=== PATIENT | female | born 2000 | race Caucasian/White ===

== ENCOUNTER 2020-03-31 13:03 | Inpatient (IN) | payer BC, OTHER, SELFPAY ==
[~2020-03-31 13:03] MED LIST: Dexamethasone 20 MG/5 ML VIAL ONE; Ketorolac Tromethamine 30 MG/ML VIAL ONE; Lidocaine 1% PF 5 ML VIAL ONE; Ondansetron PF 4 MG/2 ML Vial ONE; PROPOFOL 200 MG/20 ML VIAL ONE
[2020-03-31 13:40] LABS: #Basophils 0.1 thou/uL (0.0-0.2); #Lymphocytes 2.5 thou/uL (1.20-3.40); #Monocytes 0.6 thou/uL (0.11-0.59); #Neutrophils 2.5 thou/uL (1.40-6.50); %Basophils 1.2 % (0.0-1.0); %Eosinophils 0.8 % (0.0-10.0); %Lymphocytes 43.6 % (28.0-48.0); %Monocytes 9.9 % (0.0-4.0); %Neutrophils 44.5 % (31.0-61.0); Hemoglobin 12.2 g/dL (12.0-16.0); Mean Corpuscular HGB CONC 32.5 g/dL (32.0-36.0); Mean Corpuscular Hemoglobin 26.7 pg (25.0-35.0); Mean Corpuscular Volume 82.2 fL (78.0-98.0); Mean Platelet Volume 9.9 fL (7.4-10.4); Platelet Count 250 thou/uL (130-400); RBC Distribution Width 13.8 % (11.5-14.5); Red Blood Cell (RBC) Count 4.57 mill/uL (4.00-5.20); White Blood Cell (WBC) Count 5.6 thou/uL (4.8-10.8)
[2020-03-31] MEDS ORDERED: Ondansetron PF 4 MG/2 ML Vial ONE ×2 (13:47→14:48)
[2020-03-31] MEDS ORDERED: Ketorolac Tromethamine 30 MG/ML VIAL ONE (13:47)
[2020-03-31 13:52] LABS: BHCG - Serum Negative (NEGATIVE); Pregs Control Background? CLEAR/WHITE (CLR/WHITE); Pregs Control Bar Appear? YES (CONTROL BAR)
[2020-03-31 14:00] LABS: ALT (SGPT) 25 U/L (8-55); AST (SGOT) 22 U/L (5-34); Albumin 5.2 g/dL (3.5-5.0); Alkaline Phosphatase 98 U/L (40-100); Anion Gap 15 mmol/L (10-20); BUN (Urea Nitrogen) 14 mg/dL (7.0-18.7); Bilirubin, Total 0.4 mg/dL (0.2-1.2); Calc. Creatinine Clearance 0 mL/min (70-130); Calcium 9.9 mg/dL (7.8-10.44); Carbon Dioxide 21 mmol/L (22-29); Chloride 106 mmol/L (98-107); Estimated GFR-MDRD 88; Globulin 2.8 g/dL (2.4-3.5); Glucose 143 mg/dL (70-105); Potassium 3.3 mmol/L (3.5-5.1); Sodium 139 mmol/L (136-145)
[2020-03-31 14:13] LABS: Bacteria/HPF None Seen HPF (None Seen); Bilirubin Negative (Negative); Blood, Urine 2+ (Negative); Clarity Turbid (Clear); Glucose, Urine (Dipstick) Normal (Negative); Leukocyte 500 Leu/uL (Negative); Nitrite 1+ (Negative); Protein, Urine (Dipstick) 100 mg/dL (Neg-Trace); RBC/HPF Greater than 50 HPF (0-3); Urobilinogen Normal mg/dL (Less than 2); WBC/HPF Greater than 50 HPF (0-3)
--- NOTE | 2020-03-31 14:37 | CT ---
CT Stone Protocol: 03/31/2020 2:08 PM HISTORY: Left flank pain COMPARISON: None. TECHNIQUE: Multiple contiguous axial images were obtained and a CT of the abdomen and pelvis without IV contrast . Coronal and sagittal reformats were performed. FINDINGS: This examination is limited for the evaluation of solid organs and vascular structures due to the lac k of intravenous contrast. Lower Chest: within normal limits. Abdomen: Liver: within normal limits. Bile Ducts: Normal caliber. Gallbladder: No calcified gallstones. Normal caliber wall. Pancreas: within normal limits. Spleen: within normal limits. Adrenals: within normal limits. Kidneys: Mild left hydronephrosis. Hyperdensity of the right renal pyramids is seen. Pelvis: Reproductive Organs: No pelvic masses. Ureters: 6 mm calcific addition the proximal left ureter with mild proximal left hydroureter. Bladder: within normal limits. Bowel: Normal caliber. Normal appendix. Mesenteric Lymph Nodes: No enlarged mesenteric lymph nodes. Peritoneum: No ascites or free air, no fluid collection. Vessels: Normal caliber aorta Retroperitoneum: within normal limits. Abdominal Wall: within normal limits. Bones: Unremarkable. IMPRESSION: 1. Proximal left ureteral calcification with mild left hydronephrosis 2. 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
[2020-03-31] MEDS ORDERED: Morphine 4 MG/ML VIAL ONE (14:49)
[2020-03-31] MEDS ORDERED: Promethazine HCl 25 MG/ML VIAL ONE (15:40)
[2020-03-31 16:54] LABS: Lactic Acid 1.4 mmol/L (0.5-2.2)
[2020-03-31] MEDS ORDERED: Metoclopramide HCl 10 MG/2 ML VIAL ONE (17:15)
[2020-03-31] MEDS ORDERED: diphenhydrAMINE 50 MG/ML VIAL ONE (17:15)
--- NOTE | 2020-03-31 18:33 | PDOC.FPRHP ---
- History of Present Illness Chief Complaint: L flank pain History of Present Illness: 19yo CF who was at usual state of health until this morning at 1100 when she awoke with acute-onset, sharp stabbing L flank pain. No relieving sxs, constant until given meds in ED. Associated chills and subjective fever. Nausea and vomiting. No radiation of the pain. No dysuria, frequency, hesitation, or hematuria. Unable to tolerate PO today. Denies any cough, congestion, CP, abd pain, diarrhea/constipation. Pain resolved with meds given in ED. ED Course: Given reglan, benadryl, phenergan, NS 2L, Zofran 4mg x2, morphine 4mg, toradol 30mg, levaquin 750mg. Pain and nausea resolved with meds. Urology, Dr. Montes, consulted by ED. Plan to cont supportive care and abx, with NPO for possible urologic intervention tonight vs AM. - Allergies/Adverse Reactions Allergies Allergy/AdvReac Type Severity Reaction Status Date / Time Cephalosporins Allergy Hives Verified 03/31/20 19:26 - Home Medications Medication Instructions Recorded Confirmed Type No Known 03/31/20 03/31/20 History - History PMHx: None PSHx: C/s December 09. . FHx: Great-great grandmother with breast cancer. Mom with lupus Social: No tob, social drinker, no illicits. Does not work. Lives with baby- daddy, his cousin, and baby. - Review of Systems General: reports: fever/chills, weight/appetite/sleep changes (decreased). denies: fatigue Eyes: denies: vision changes ENT: denies: nasal congestion, rhinorrhea Respiratory: denies: cough, congestion, shortness of breath Cardiovascular: denies: chest pain, palpitation, edema Gastrointestinal: reports: nausea, vomiting, other (L flank pain). denies: diarrhea, constipation, abdominal pain Genitourinary: denies: incontinence, dysuria, polyuria, discharge Skin: denies: rashes, lesions Musculoskeletal: denies: pain, tenderness Neurological: denies: weakness - Vital signs BP: [124/64] HR: [116] RR: [17] Tmax: [98.0] Pox: [99]% on [RA] Wt: [63kg] - Physical Exam Constitutional: NAD, awake, alert and oriented, well developed HEENT: normocephalic and atraumatic, PERRLA, EOMI, conjunctiva clear, no scleral icterus, MMM, oropharynx clear Neck: supple, FROM, trachea midline Heart: RRR, normal S1/S2, no murmurs/rubs/gallops, pulses present, no edema Lungs: CTAB, no respiratory distress, good air movement, no rales/rhonchi, no wheezing Abdomen: soft, non-tender, bowel sounds present, other (no CVA tenderness) Musculoskeletal: normal structure, ROM grossly normal Neurological: no focal deficit, CN II-XII intact Skin: no rash/lesions, good turgor, capillary refill <2 seconds Heme/Lymphatic: no unusual bruising or bleeding Psychiatric: normal mood and affect, good judgment and insight FMR H&P: Results - Labs Result Diagrams: 03/31/20 13:27 03/31/20 13:27 Lab results: WBC 5.6 thou/uL (4.8-10.8) 03/31/20 13:27 Hgb 12.2 g/dL (12.0-16.0) 03/31/20 13:27 Hct 37.6 % (36.0-47.0) 03/31/20 13:27 MCV 82.2 fL (78.0-98.0) 03/31/20 13:27 Plt Count 250 thou/uL (130-400) 03/31/20 13:27 Neutrophils % 44.5 % (31.0-61.0) 03/31/20 13:27 Sodium 139 mmol/L (136-145) 03/31/20 13:27 Potassium 3.3 mmol/L (3.5-5.1) L 03/31/20 13:27 Chloride 106 mmol/L (98-107) 03/31/20 13:27 Carbon Dioxide 21 mmol/L (22-29) L 03/31/20 13:27 BUN 14 mg/dL (7.0-18.7) 03/31/20 13:27 Creatinine 0.83 mg/dL (0.6-1.1) 03/31/20 13:27 Glucose 143 mg/dL (70-105) H 03/31/20 13:27 Lactic Acid 1.4 mmol/L (0.5-2.2) 03/31/20 16:29 Calcium 9.9 mg/dL (7.8-10.44) 03/31/20 13:27 Total Bilirubin 0.4 mg/dL (0.2-1.2) 03/31/20 13:27 AST 22 U/L (5-34) 03/31/20 13:27 ALT 25 U/L (8-55) 03/31/20 13:27 Alkaline Phosphatase 98 U/L (40-100) 03/31/20 13:27 Serum Total Protein 8.0 g/dL (6.0-8.3) 03/31/20 13:27 Albumin 5.2 g/dL (3.5-5.0) H 03/31/20 13:27 Urine Ketones Negative mg/dL (Negative) 03/31/20 13:50 Urine Blood 2+ (Negative) A 03/31/20 13:50 Urine Nitrite 1+ (Negative) A 03/31/20 13:50 Ur Leukocyte Esterase 500 Blanka/uL (Negative) A 03/31/20 13:50 Urine RBC Greater than 50 HPF (0-3) A 03/31/20 13:50 Urine WBC Greater than 50 HPF (0-3) A 03/31/20 13:50 Ur Squamous Epith Cells 11-20 HPF (0-3) A 03/31/20 13:50 Urine Bacteria None Seen HPF (None Seen) 03/31/20 13:50 - Radiology Interpretation CT scan - abdomen Status: report reviewed by me (6mm proximal L ureter stone with mild L hydroureter. Hyperdensity at renal pyramids seen with renal medullary calcinosis ) FMR H&P: A/P - Problem List (1) Nephrolithiasis Current Visit: Yes Status: Acute (2) Sepsis secondary to UTI Current Visit: Yes Status: Acute Code(s): A41.9 - SEPSIS, UNSPECIFIED ORGANISM; N39.0 - URINARY TRACT INFECTION, SITE NOT SPECIFIED - Plan 19yo CF with no previous medical history presents for L flank pain found to have L nephrolithiasis and sepsis 2/2 complicated UTI. #Sepsis 2/2 complicated UTI - Tachy to 120, tachypnea to 22 - Dirty catch UA with 500 LE, >50 WBC, 1+ nitrite, 2+ blood with 11-20 squam - WBC 5.6 - LA 2.3 -> 1.4 s/p IVF - Cont Levaquin 750mg IV q24hrs pending UCx - Cont IVF @ 150cc/hr - BCx pending - Urine GC/C and trich ordered - will repeat straight cath UA - UPT negative #Nephrolithiasis - 6mm L proximal ureter stone with mild hydroureter on CT, no evidence of pyelo - Urology, Dr. Montes consulted from ED, possible urologic intervention, apprec recs - Cont IVF - Toradol for pain control - Zofran prn nausea - Flomax - will strain urine PCP: None Code: Full IVF: LR @ 150cc/hr Diet: NPO at MN VTE: SCDs Disposition/LOS: Admit to medical inpatient for sepsis 2/2 complicated UTI and nephrolithiasis. Anticipate hospitalization >48hrs. FMR H&P: Upper Level - Plan Date/Time: 03/31/201832 I, [Tonya Alcala], have evaluated this patient and agree with findings/plan as outlined by internal medicine nurse practitioner resident. Pertinent changes/additions are listed here. 19 yo F with no PMH presents to ER for abd/flank pain. Left sided flank pain with no radiation, started this morning. Associated n/v. CT abd showed 6mm left proximal ureteral stone with mild left hydronephrosis. Denies fevers, hematuria. ER: given toradol, zofran, levaquin 750mg, morphine, reglan PE: Gen: NAD, well appearing CV: RRR, no murmurs Abd: left flank pain Extrem: No edema Labs WBC 5.6 K 3.3 HCO3 21 Cr 0.88 gfr 88 19 yo admitted for sepsis 2/2 ureterolithiasis #. Sepsis 2/2 complicated UTI (ureterolithiasis) -CT Abd: 6mm left proximal ureteral stone, tachycardic, tachypneic. However well appearing -UA: WBC >50, RBC >50, nitrites with 11-20 squamous cells. Will get GC/CT and Trich in addition to repeat UA with straight cath -s/p 2L bolus & 750mg levaquin, continue pending UCx -Urology consulted, plan pending, NPO at midnight -Renal function stable, continue IVF -Pain control with toradol supportive care dvt ppx: lovenox abx: levaquin IV lines: 1 peripheral 18g Discussed with Dr. Mcintyre Addendum - Attending - Attending Attestation Date/Time: 03/31/202038 I personally evaluated the patient and discussed the management with Dr. Alcala and Dr. Charles I agree with the History, Examination, Assessment and Plan documented above with any addition or exceptions noted below. 19 yo female presented with left flank pain starting earlier today. Denied other symptoms except nausea and poor appetite. VS reviewed. Labs reviewed. Noted to have elevated white count and positive urine studies. CT scan reviewed. Stone noted with mild hydro on left. 1. Acute complicated UTI with obstruction (6 mm nephrolithasis) and sepsis: Due to age and exposures, suspicion for MDR bacteria is low at this time. Will therefore continue with levofloxacin. Currently afebrile and without CVT. Trend labs in AM. Cath specimen ordered due to dirty catch previously. Switch to MDR regiment in AM if not improving. Beta lactam allergy. - Increase IV hydration - Monitor renal function - Strain urine and send to path for review - Urology consulted from ER. Will see in AM. Treatment options to be determined. - Pain control with IV and oral morphine/norco and NSAIDs ABrayMD
[2020-03-31 21:11] LABS: Bacteria/HPF None Seen HPF (None Seen); Bilirubin Negative (Negative); Blood, Urine Negative (Negative); Clarity Clear (Clear); Glucose, Urine (Dipstick) Normal (Negative); Leukocyte 75 Leu/uL (Negative); Nitrite Negative (Negative); Protein, Urine (Dipstick) Negative (Neg-Trace); RBC/HPF 0-3 HPF (0-3); Squamous Epithelial 0-3 HPF (0-3); Urobilinogen Normal mg/dL (Less than 2)
[2020-03-31] MEDS ORDERED: Ondansetron ODT 4 MG TAB PO PRN (22:10)
[2020-03-31] MEDS ORDERED: Calcium Carbonate 500 MG ChewTAB PO PRN (22:10)
[2020-03-31] MEDS ORDERED: Sodium Chloride 0.9% 1,000 ML IV SCH (22:15)
[2020-03-31] MEDS ORDERED: Iopamidol 50 ML FS ONE (22:20)
[2020-03-31] MEDS ORDERED: Tamsulosin HCl 0.4 MG CAP PO SCH (22:30)
[2020-03-31] MEDS ORDERED: Fentanyl 100 MCG/2 ML VIAL ONE (22:34)
[2020-03-31] MEDS ORDERED: Ondansetron HCl/PF 4 MG/2 ML Vial IVP PRN (23:09)
[2020-03-31] MEDS ORDERED: Promethazine HCl 25 MG/ML VIAL SLOW IVP PRN (23:09)
[2020-03-31] MEDS ORDERED: PACU-Morphine 4MG/ML VIAL SLOW IVP PRN (23:09)
[2020-03-31] MEDS ORDERED: Promethazine HCl 25 MG/ML VIAL IM PRN (23:09)
[2020-03-31] MEDS ORDERED: HYDROmorphone 2 MG/ML VIAL SLOW IVP PRN (23:09)
[2020-03-31] MEDS ORDERED: Meperidine HCl/PF 25 MG/ML VIAL SLOW IVP PRN (23:09)
[2020-03-31] MEDS ORDERED: Morphine Sulfate 2 MG/ML SYRINGE SLOW IVP PRN (23:09)
--- NOTE | 2020-03-31 23:09 | CON ---
DATE OF CONSULTATION: 03/31/2020 REASON FOR CONSULTATION: Left ureteral stone and urinary tract infection. REQUESTING PHYSICIAN: Family Practice Service, Dr. Fredy Charles. HISTORY OF PRESENT ILLNESS: Ms. Albert is a 19-year-old female with no past urologic history, who presented to the [facility] in [place] with acute onset of left-sided flank pain associated with nausea as well as subjective fever. The patient had a CT scan performed which demonstrated a 6 mm partially obstructing left proximal ureteral calculus with left hydronephrosis. Urinalysis was nitrite positive and had only a few bacteria and significant amount of bright red and white blood cells. The patient was initially tachycardic and had a lactate of 2.3. She was given fluids. Her heart rate decreased. Her pain became more controlled and initially was decided to give her trial passage as an outpatient. After her urine was cultured, she was given IV antibiotics and will be sent home on p.o. antibiotics. The patient however deteriorated in the emergency department and Urology was consulted after plans to admit her after plans had already been placed to admit her to the Hospitalist Service. The patient reports her pain has improved. She has had nausea and vomiting today. No dysuria or frequency. No gross hematuria. She has not tolerated p.o. intake at all today other than a sip of water. No prior history of urolithiasis. No other complaints. REVIEW OF SYSTEMS: Full 12-point review of systems was performed and is negative other than that mentioned in HPI. PAST MEDICAL HISTORY: None. PAST SURGICAL HISTORY: on December 10, 2019. FAMILY HISTORY: Noncontributory. SOCIAL HISTORY: No tobacco, alcohol, or illicit drugs. She does not work. She lives with a father of her child. ALLERGIES: CEPHALOSPORINS. PHYSICAL EXAMINATION: VITAL SIGNS: Blood pressure 124/64, heart rate 116, respirations 16, T-max 99.8, T-current 98.0, oxygen saturation 99% on room air. GENERAL: She is alert and oriented x3, in no apparent distress. HEENT: Normocephalic and atraumatic. NECK: Supple. No masses or lymphadenopathy. CARDIOVASCULAR: Regular rate and rhythm. PULMONARY: Breathing unlabored. ABDOMEN: Soft, nontender/nondistended. No masses or organomegaly. No suprapubic tenderness to palpation. No CVA tenderness. EXTREMITIES: Warm and well perfused. No edema. NEUROLOGIC: No focal deficits. PSYCHIATRIC: Normal mood and appropriate affect. LABORATORY DATA: White blood cell count 5.6, hemoglobin 12.2, hematocrit 37.6, platelets 250. Sodium 139, potassium 3.3, chloride 106, bicarb 21, BUN 14, creatinine 0.83. RADIOLOGY DATA: CT scan of the abdomen and pelvis. These films were reviewed and agreed with radiologist's interpretation. There is a proximal 6 mm left ureteral calculus with left hydroureteronephrosis. There is also some hyperdensity within the bilateral renal pyramids. ASSESSMENT: A 19-year-old female with left ureteral calculus, urinary tract infection, sepsis secondary to urinary tract infection. PLAN: I reviewed the natural history and clinical implications of ureterolithiasis in the setting of urinary tract infection with the patient in detail. I explained the need for decompression of her left renal collecting system. I discussed options with her. After indications/risks/benefits/alternatives/possible outcomes were discussed with the patient in detail, she elects to proceed with left ureteral stent placement and all indicated procedures. She understands that this will not definitively managed the stone, but will decompress the kidney in the setting of infection and she will require staged definitive management of the stone either by ureteroscopy or laser lithotripsy, or possibly left extracorporeal shockwave lithotripsy. She is n.p.o. and this will be performed later today. Job ID: [id number]
--- NOTE | 2020-03-31 23:53 | OP ---
DATE OF PROCEDURE: 03/31/2020 LOAN ASSOCIATE: None. PREPROCEDURE DIAGNOSES: Left ureteral stone with left hydronephrosis and sepsis secondary to urinary tract infection. POSTPROCEDURE DIAGNOSES: Left ureteral stone with left hydronephrosis and sepsis secondary to urinary tract infection. PROCEDURE PERFORMED: 1. Left ureteral stent placement. 2. Left retrograde ureteropyelogram. 3. Manipulation of left ureteral stone into renal pelvis. ANESTHESIA: LMA anesthesia. COMPLICATIONS: None. FLUIDS: See Anesthesia record. ESTIMATED BLOOD LOSS: Minimal. SPECIMENS: None. POSTPROCEDURE STATUS: Satisfactory. INDICATIONS FOR PROCEDURE: Ms. Albert is a 19-year-old female with no past urologic history, who presented with acute onset of left-sided flank pain associated with subjective fever. The patient had an elevated lactate and signs of urinary tract infection on her urinalysis. A CT scan demonstrated a 6 to 7 mm proximal left ureteral stone with left hydronephrosis. Her pain was poorly controlled and she was tachycardic. After indications/risks/benefits/alternatives/possible outcomes were discussed with the patient in detail, she elected to proceed with left ureteral stent placement and all indicated procedures. The patient was admitted by the Family Medicine Service for IV antibiotics. DESCRIPTION OF PROCEDURE: The patient was taken to the operating room and after successful induction of LMA anesthesia, she was placed in the dorsal lithotomy position and her genitalia was prepped and draped in usual sterile fashion. A time-out was performed, following which a 22-Sammarinese rigid cystoscope sheath was inserted into the patient's urethra. A 30-degree lens was used to perform complete cystoscopy. Left ureteral orifice was identified and was cannulated with a 0.035-inch zip wire. This was advanced up to the level of the left renal pelvis under fluoroscopic guidance. An open-ended ureteral catheter was placed over this up to the level of the left ureteropelvic junction. The wire was removed and 3 mL of a 50:50 mix of Isovue contrast and saline were used to perform a left retrograde ureteropyelogram. There was mild left hydroureteronephrosis. The stone could be visualized at the left ureteropelvic junction and the open-ended catheter was used to manipulate it into the kidney. The wire was replaced and an open-ended catheter was removed. We attempted to place a 6-Sammarinese x 24 cm double-J ureteral stent over the wire; however, we could not advance it into the distal ureter. At this point, we removed this and replaced the open-ended catheter and switched out for a PTFE wire. We attempted to place a stent over the PTFE wire; however, there was resistance at the left ureterovesical junction and we could not place the stent beyond this. At this point, we used the inner portion of a 12/14-Sammarinese ureteral access sheath to dilate the distal ureter, was easily passed into the distal ureter. We then removed the inner portion of the sheath. Over the PTFE wire, we placed a 6-Sammarinese x 24 cm double-J ureteral stent. Upon wire removal, a good curl was achieved proximally within the left renal pelvis extending into the lower pole and distally within the bladder. The patient's bladder was drained. She tolerated the procedure well, was awoken from anesthesia and transferred to the PACU in satisfactory condition. Job ID: [id number]
[2020-04-01] MEDS: Potassium Chloride 20 MEQ TAB PO SCH ×2 (00:42→22:23)
[2020-04-01] MEDS: Lactated Ringer's 1,000 ML IV SCH ×5 (00:44→21:22)
[2020-04-01] MEDS: Acetaminophen 325 MG TAB PO PRN ×2 (01:59→21:25)
[2020-04-01 02:14] VITALS: BMI 22.6
[2020-04-01 06:33] LABS: Anion Gap 12 mmol/L (10-20); BUN (Urea Nitrogen) 9 mg/dL (7.0-18.7); Calc. Creatinine Clearance 117 mL/min (70-130); Carbon Dioxide 18 mmol/L (22-29); Chloride 110 mmol/L (98-107); Estimated GFR-MDRD Greater than 90; Glucose 145 mg/dL (70-105); Potassium 4.4 mmol/L (3.5-5.1); Sodium 136 mmol/L (136-145)
--- NOTE | 2020-04-01 07:44 | PDOC.FM ---
- Subjective Subjective: Pt denies any events since her stent placement last night. Does note some mild lower abdominal pain that is worse with urination. Denies seeing anything like blood or different in her urine since the procedure. Denies F/C/N/V. - Objective Vital Signs & Weight: Vital Signs (12 hours) Temp Pulse Resp BP Pulse Ox 04/01/20 07:04 98.2 F 80 18 105/63 97 04/01/20 04:19 98.1 F 90 17 115/73 99 04/01/20 02:10 98.1 F 87 18 108/71 100 03/31/20 23:09 100 03/31/20 22:15 99.2 F 113 H 18 114/71 100 03/31/20 22:10 99.2 F 113 H 18 114/71 100 Weight Weight 63.503 kg Result Diagrams: 03/31/20 13:27 04/01/20 05:07 Phys Exam - Physical Examination Constitutional: NAD HEENT: moist MMs No resp distress Gastrointestinal: soft, no distention, positive bowel sounds Suprapubic tenderness and fullness Musculoskeletal: no edema, pulses present Neurological: moves all 4 limbs Psychiatric: normal affect, A&O x 3 Dx/Plan - Plan Plan: Sepsis (resolved) 2/2 obstructive UTI - Dr. Gutierrez, uro, placed left ureteral stent last night, appreciate recs - Flomax - Levaquin 750mg IV q24hrs pending UCx - Cont IVF @ 150cc/hr - BCx pending - Urine GC/C and trich ordered - Strict I/O - Bladder scan and pt notes fullness or no urination over 4-6hr - Toradol prn for pain, Morphine for breakthrough PCP: None Code: Full IVF: LR @ 150cc/hr Diet: Regular VTE: SCDs Disposition/LOS: Medical inpatient for sepsis 2/2 complicated UTI and nephrolithiasis. Will monitor pain, PO tolerance, and urine output today as we continue IVF fluids and abx.
[2020-04-01] MEDS ORDERED: Morphine 2 MG/ML SYRINGE SLOW IVP PRN (07:55)
[2020-04-01] MEDS: Ketorolac Tromethamine 30 MG/ML VIAL IVP PRN ×2 (08:04→20:07)
--- NOTE | 2020-04-01 12:23 | PRG ---
DATE OF SERVICE: 04/01/2020 Ms. Albert is a 19-year-old white female patient, who was admitted with a left-sided pyelo and found to have nephrolithiasis with a 7 mm stone. Urology was consulted and placed a left ureteral stent. Ms. Albert looks and feels much better and she is afebrile. She is growing an E coli out of a blood culture, but urine culture is negative so far. We will continue with intravenous Levaquin and transition her to p.o. medications in a day or 2. Job ID: [id number]
[2020-04-01] MEDS: Piperacillin/Tazobactam 4.5 GM in Sodium Chloride 0.9% 100 ML IVPB SCH ×2 (15:24→20:08)
[2020-04-01] MEDS: metroNIDAZOLE 500 MG TAB PO SCH (20:07)
[2020-04-01] MEDS: Tamsulosin HCl 0.4 MG CAP PO SCH (20:07)
[2020-04-02] MEDS: Piperacillin/Tazobactam 4.5 GM in Sodium Chloride 0.9% 100 ML IVPB SCH ×4 (03:20→21:18)
[2020-04-02] MEDS: Ondansetron PF 4 MG/2 ML Vial IVP PRN ×3 (03:36→19:14)
[2020-04-02] MEDS: Lactated Ringer's 1,000 ML IV SCH ×3 (03:36→17:52)
[2020-04-02 06:01] LABS: #Eosinphils 0.1 thou/uL (0.0-0.7); #Lymphocytes 1.5 thou/uL (1.20-3.40); #Monocytes 0.5 thou/uL (0.11-0.59); %Basophils 0.4 % (0.0-1.0); %Eosinophils 0.7 % (0.0-10.0); %Lymphocytes 18.7 % (28.0-48.0); %Monocytes 6.6 % (0.0-4.0); %Neutrophils 73.6 % (31.0-61.0); Mean Corpuscular HGB CONC 33.2 g/dL (32.0-36.0); Mean Corpuscular Hemoglobin 27.8 pg (25.0-35.0); Mean Corpuscular Volume 83.7 fL (78.0-98.0); Mean Platelet Volume 10.9 fL (7.4-10.4); Platelet Count 130 thou/uL (130-400); RBC Distribution Width 13.9 % (11.5-14.5); Red Blood Cell (RBC) Count 3.24 mill/uL (4.00-5.20); White Blood Cell (WBC) Count 8.2 thou/uL (4.8-10.8)
[2020-04-02 06:11] LABS: Anion Gap 10 mmol/L (10-20); BUN (Urea Nitrogen) 8 mg/dL (7.0-18.7); Calc. Creatinine Clearance 136 mL/min (70-130); Calcium 8.3 mg/dL (7.8-10.44); Carbon Dioxide 23 mmol/L (22-29); Chloride 109 mmol/L (98-107); Estimated GFR-MDRD Greater than 90; Glucose 93 mg/dL (70-105); Potassium 3.4 mmol/L (3.5-5.1); Sodium 139 mmol/L (136-145)
--- NOTE | 2020-04-02 08:19 | PDOC.FM ---
- Subjective Subjective: Pt's only complaint was nausea this morning without vomiting. Dysuria has improved. Did note some small amount of blood with wiping. - Objective Vital Signs & Weight: Vital Signs (12 hours) Temp Pulse Resp BP Pulse Ox 04/02/20 07:21 98.0 F 71 18 92/50 L 99 04/02/20 04:00 98.2 F 85 16 106/58 L 99 04/02/20 00:00 98.1 F 82 16 90/52 L 99 Weight Weight 63.503 kg I&O: 04/01/20 04/02/20 04/03/20 06:59 06:59 06:59 Intake Total 4130 Output Total 1350 Balance 2780 Result Diagrams: 04/02/20 05:23 04/02/20 05:23 Phys Exam - Physical Examination Constitutional: NAD HEENT: sclera anicteric Respiratory: clear to auscultation bilateral Cardiovascular: RRR Gastrointestinal: soft, non-tender, no distention Neurological: moves all 4 limbs Psychiatric: normal affect, A&O x 3 Dx/Plan - Plan Plan: Sepsis (resolved) 2/2 obstructive UTI - s/p left ureteral stent placement [address] Gutierrez - Flomax melanie, morphine prn - Zosyn - reduce IVF rate due to dilution and tolerating PO - Blood and urine culture + for e. coli - pansensitive - Will plan to narrow IV abx spectrum with subsequent transition to enteral abx likely tomorrow - Procal 5.98 E. Coli bacteremia - As above Bacterial Vaginosis - VP3 + for gardnerella - Flagyl BID x 7 days PCP: None Code: Full IVF: LR @ 70 Diet: Regular VTE: SCDs Disposition/LOS: Medical inpatient for sepsis complicated UTI and nephrolithiasis, POD 2 left ureteral stent. Continue IV abx with sensitivity directed narrowing. Plan for PO transition tomorrow and possible DC then. Addendum - Attending - Attending Attestation Date/Time: 04/02/20 1079 I personally evaluated the patient and discussed the management with Dr. Walsh. I agree with the History, Examination, Assessment and Plan documented above with any addition or exceptions noted below. Patient feeling improved, still some issues with PO intake. Continue IV abx, awaiting further Urology recs but assume we are close to transition to PO and discharge if her PO intake improves.
[2020-04-02] MEDS: metroNIDAZOLE 500 MG TAB PO SCH ×2 (08:24→19:14)
[2020-04-02] MEDS ORDERED: Potassium Chloride 20 MEQ TAB PO SCH (09:30)
[2020-04-02] MEDS: Acetaminophen 325 MG TAB PO PRN (09:45)
[2020-04-02 17:51] LABS: Chlam.trachomatis by PCR,Urine Not Detected (NotDetected)
[2020-04-02] MEDS: Tamsulosin HCl 0.4 MG CAP PO SCH (19:13)
[2020-04-02] MEDS: Sulfameth/Trimethoprim DS 800-160mg TAB PO SCH (19:14)
[2020-04-02] MEDS: Ketorolac Tromethamine 30 MG/ML VIAL IVP PRN (19:15)
[2020-04-03] MEDS: Piperacillin/Tazobactam 4.5 GM in Sodium Chloride 0.9% 100 ML IVPB SCH (02:19)
[2020-04-03 06:53] LABS: #Eosinphils 0.1 thou/uL (0.0-0.7); #Lymphocytes 1.4 thou/uL (1.20-3.40); #Monocytes 0.4 thou/uL (0.11-0.59); #Neutrophils 2.5 thou/uL (1.40-6.50); %Basophils 0.7 % (0.0-1.0); %Eosinophils 1.3 % (0.0-10.0); %Lymphocytes 31.5 % (28.0-48.0); %Monocytes 8.5 % (0.0-4.0); Hemoglobin 9.8 g/dL (12.0-16.0); Mean Corpuscular HGB CONC 32.9 g/dL (32.0-36.0); Mean Corpuscular Hemoglobin 27.4 pg (25.0-35.0); Mean Corpuscular Volume 83.2 fL (78.0-98.0); Mean Platelet Volume 10.7 fL (7.4-10.4); Platelet Count 133 thou/uL (130-400); RBC Distribution Width 13.9 % (11.5-14.5); Red Blood Cell (RBC) Count 3.59 mill/uL (4.00-5.20); White Blood Cell (WBC) Count 4.3 thou/uL (4.8-10.8)
--- NOTE | 2020-04-03 07:05 | PDOC.FM ---
- Subjective Subjective: Pt denies any events overnight. Notes some continued nausea but no vomiting. States she is still able to eat. No diarrhea/constipation. Discussed plan for likely DC later this morning and pt is agreeable with plan and outpt follow up w / uro. - Objective Vital Signs & Weight: Vital Signs (12 hours) Temp Pulse Resp BP Pulse Ox 04/03/20 04:00 98.6 F 75 16 96/61 99 04/02/20 19:53 98.4 F 64 16 119/77 100 Weight Weight 63.503 kg I&O: 04/02/20 04/03/20 04/04/20 06:59 06:59 06:59 Intake Total 4130 2580 Output Total 1350 2100 Balance 2780 480 Result Diagrams: 04/03/20 06:17 04/03/20 06:18 Phys Exam - Physical Examination Constitutional: NAD HEENT: moist MMs No resp distress Gastrointestinal: soft, non-tender Musculoskeletal: no edema, pulses present Neurological: moves all 4 limbs Psychiatric: normal affect, A&O x 3 Dx/Plan - Plan Plan: Sepsis (resolved) 2/2 obstructive UTI - s/p left ureteral stent placement [address] Gutierrez - Flomax - PO Bactrim - IVF DC'd - Blood and urine culture + for e. coli - pansensitive - Procal 7.92 -> 5.98 -> 3.24 E. Coli bacteremia - As above Bacterial Vaginosis - VP3 + for gardnerella - Flagyl BID x 7 days PCP: None Code: Full IVF: LR @ 70 Diet: Regular VTE: SCDs Disposition/LOS: Medical inpatient for sepsis complicated UTI and nephrolithiasis, POD 3 left ureteral stent. Transitioned to PO abx last night, pt tolerated well. Will plan for DC today with outpt abx for full 2 week course. Addendum - Attending - Attending Attestation Date/Time: 04/03/20 1014 I personally evaluated the patient and discussed the management with Dr. Walsh. I agree with the History, Examination, Assessment and Plan documented above with any addition or exceptions noted below. Patient improved. Cleared by Urology for dc on PO abx and will follow up outpatient with them in 2 weeks. She is still having some nausea but should be stable for dc later today.
[2020-04-03 07:15] LABS: Anion Gap 12 mmol/L (10-20); BUN (Urea Nitrogen) 5 mg/dL (7.0-18.7); Calc. Creatinine Clearance 136 mL/min (70-130); Carbon Dioxide 23 mmol/L (22-29); Chloride 106 mmol/L (98-107); Estimated GFR-MDRD Greater than 90; Glucose 79 mg/dL (70-105); Potassium 3.5 mmol/L (3.5-5.1); Sodium 137 mmol/L (136-145)
[2020-04-03 07:28] VITALS: BP 110/66; TEMP 98.1
[2020-04-03] MEDS: Sulfameth/Trimethoprim DS 800-160mg TAB PO SCH (08:03)
[2020-04-03] MEDS: metroNIDAZOLE 500 MG TAB PO SCH (08:03)
[2020-04-03] MEDS ORDERED: Ondansetron ODT 8 MG TAB PO SCH (10:00)
--- NOTE | 2020-04-03 23:53 | DIS ---
DATE OF ADMISSION: 03/31/2020 DATE OF DISCHARGE: 04/03/2020 ADMITTING ATTENDING: Catherine Mcintyre MD. DISCHARGE ATTENDING: Cristian Mata MD. RESIDENT: Uvaldo Walsh DO. CONSULT: Neurology, Dr. Jhonny Montes. PROCEDURE: Left ureteral stent placement performed on 03/31/[address] Jhonny Montes. IMAGING: Abdomen and pelvis CT on 03/31/2020. Impression: Proximal left ureteral calcification with mild left hydronephrosis. 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 PRIMARY DIAGNOSIS: Left-sided pyelonephritis secondary to nephrolithiasis, E. coli bacteremia SECONDARY DIAGNOSIS: Nausea. DISCHARGE MEDICATIONS: 1. Bactrim Double Strength b.i.d. x12 days. 2. Flagyl 500 mg b.i.d. x5 days. 3. Zofran 4 mg 1-2 tabs q.4-6 hours p.r.n. nausea. 4. Flomax daily. HISTORY OF PRESENT ILLNESS AND HOSPITAL COURSE: A 19-year-old female presented to the emergency department complaining of left flank pain. Initial workup in the ED showed a CT abdomen and pelvis significant for a left ureteral stone with mild hydronephrosis. The patient was also found to be septic by her white blood count and vitals. She received IV fluid resuscitation and was started on IV Levaquin and admitted to the hospital. Dr. Montes with urology was consulted and brought the patient back to the OR and placed a left ureteral stent and displaced the obstructing stone back into the renal pelvis. Over the next few days, the patient received IV antibiotics that were sensitivity directed. The patient was found to have positive blood cultures for E coli, so the patient was transitioned to Zosyn for her IV antibiotics. The patient was then transitioned to oral Bactrim to be continued for a total of 14 day duration of IV antibiotics. The patient also had a VPIII performed that was positive for Gardnerella, so the patient was started on Flagyl to be continued as an outpatient. Dr. Montes suggested that the patient followup with him as an outpatient to further address dislodging the stone after her infection has cleared. DISCHARGE INSTRUCTIONS: Location: Home. Diet: Regular. Activity: As tolerated. FOLLOWUP: PCP Ruben Lock within next 7 days, Dr. Montes in 2 weeks after finishing IV antibiotics. Job ID: [id number] [facility]
== END 2020-04-03 11:05 | disposition home or self-care (01) | DRG 854 ==
LOC: ERS 13:03 → T4-B 18:36
PROVIDERS: ADMIT Student in an Organized Health Care Education/Training Program; ATTEND Student in an Organized Health Care Education/Training Program
PROC: 0T778DZ Dilation of Left Ureter with Intraluminal Device, Via Natural or Artificial Opening Endoscopic (ICD-10-PCS; principal; 2020-03-31)
PROC: BT1F1ZZ Fluoroscopy of Left Kidney, Ureter and Bladder using Low Osmolar Contrast (ICD-10-PCS; 2020-03-31)
DX: A41.51 Sepsis due to Escherichia coli [E. coli] (principal); N13.6 Pyonephrosis; N76.0 Acute vaginitis; Z88.1 Allergy status to other antibiotic agents
CPT/HCPCS: 36415; 51701; 74176; 74420; 80048; 80053; 81003; 81015; 83605; 84145; 84703; 85025; 87040; 87077; 87086; 87149; 87186; 87480; 87491; 87510; 87591; 87660; 96361; 96365; 96367; 96375; 96376; J1100; J1200; J1885; J1956; J2001; J2270; J2405; J2543; J2550; J2704; J2765; J3010; J3490; Q0162; Q9967

== ENCOUNTER 2022-09-10 19:26 | Emergency (ER) | payer BC ==
[2022-09-10] MEDS ORDERED: Ondansetron ODT 4 MG TAB ONE (20:47)
[2022-09-10 21:10] LABS: #Lymphocytes 1.5 thou/uL (1.20-3.40); #Monocytes 0.9 thou/uL (0.11-0.59); #Neutrophils 9.4 thou/uL (1.40-6.50); %Basophils 0.2 % (0.0-1.0); %Eosinophils 0.1 % (0.0-10.0); %Lymphocytes 12.8 % (21.0-51.0); %Monocytes 7.2 % (0.0-10.0); %Neutrophils 79.7 % (42.0-75.0); Hemoglobin 11.2 g/dL (12.0-16.0); Mean Corpuscular HGB CONC 34.5 g/dL (32.0-36.0); Mean Corpuscular Hemoglobin 29.2 pg (27.0-31.0); Mean Corpuscular Volume 84.8 fl (78.0-98.0); Mean Platelet Volume 9.6 fL (7.4-10.4); Platelet Count 172 10x3/uL (130-400); RBC Distribution Width 11.9 % (11.5-14.5); Red Blood Cell (RBC) Count 3.84 mill/uL (4.20-5.40); White Blood Cell (WBC) Count 11.8 10x3/uL (4.8-10.8)
[2022-09-10 21:38] LABS: ALT (SGPT) 30 U/L (8-55); AST (SGOT) 38 U/L (5-34); Albumin 3.5 g/dL (3.5-5.0); Alkaline Phosphatase 129 U/L (40-110); Anion Gap 14 mmol/L (10-20); BUN (Urea Nitrogen) 5 mg/dL (7.0-18.7); Bilirubin, Total 0.5 mg/dL (0.2-1.2); Calc. Creatinine Clearance 0 mL/min (70-130); Calcium 9.1 mg/dL (7.8-10.44); Carbon Dioxide 21 mmol/L (22-29); Chloride 104 mmol/L (98-107); Estimated GFR 132; Globulin 3.7 g/dL (2.4-3.5); Protein, Total 7.2 g/dL (6.0-8.3); Sodium 136 mmol/L (136-145)
[2022-09-10 21:53] LABS: SARS-CoV-2 NAA Rapid Test Not Detected (NotDetected)
[2022-09-10 22:55] LABS: Bacteria/HPF 1+ HPF (None Seen); Bilirubin Negative (Negative); Blood, Urine Negative (Negative); Clarity Clear (Clear); Glucose, Urine (Dipstick) Normal (Negative); Ketone, Urine 40 mg/dL (Negative); Leukocyte Negative Leu/uL (Negative); Nitrite Negative (Negative); Protein, Urine (Dipstick) 30 mg/dL (Neg-Trace); RBC/HPF 0-3 HPF (0-3); Specific Gravity, Urine 1.018 (1.002-1.036); Squamous Epithelial 0-3 HPF (0-3); Urobilinogen 6 mg/dL (Less than 2); WBC/HPF 0-3 HPF (0-3)
[2022-09-10] MEDS ORDERED: Potassium Chloride 20 MEQ TAB ONE (23:20)
[2022-09-11 01:21] LABS: Glucose 94 mg/dL (70-105)
== END 2022-09-10 23:46 | disposition home or self-care (01) ==
LOC: ERS 19:26
DX: J10.1 Influenza due to other identified influenza virus with other respiratory manifestations (principal); Z20.822 Contact with and (suspected) exposure to COVID-19
CPT/HCPCS: 36415; 80053; 81003; 81015; 85025; 99283; Q0162